=== PATIENT | female | born 1950 | race Caucasian/White ===

== ENCOUNTER 2021-05-06 11:48 | Inpatient (IN) ==
[2021-05-06] MEDS ORDERED: SODIUM CHLORIDE 0.9% 1,000 ML IV STA (12:20)
[2021-05-06] MEDS ORDERED: PANTOPRAZOLE 40 MG VIAL IV STA (12:22)
[2021-05-06 12:54] LABS: Basophils % 0.2 % (0.0-0.8); Hematocrit 19.4 VOL% (35.7-47.0); Immature Granulocytes % 1.2 %; Immature Granulocytes Absolute 0.22 #; Lymphocytes # 1.8 10*3/uL (1.4-4.0); Lymphocytes % 10.1 % (21.3-54.2); Mean Corpuscular HGB Conc 32.5 GM/DL (32-36); Mean Corpuscular Volume 102.1 FL (87-102); Monocytes % 7.8 % (1.7-12.7); NRBC # 0.17 10*3/uL; Neutrophils % 80.7 % (38.7-73.9); Platelet Count 166 T/CUMM (130-400); Red Cell Distribution Width 15.9 % (9.3-17.3); White Blood Count 17.9 T/CUMM (4-12)
[2021-05-06 12:58] LABS: Hemoglobin 6.3 GM/DL (12.0-16.0)
[2021-05-06 13:04] LABS: PT Patient Result 118.7 SECS (10.5-12.0)
[2021-05-06 13:11] LABS: Bilirubin,Total 0.4 MG/DL (0.20-1.00); Osmolality,Calculated 315.8 MOS/KG (273-304); Potassium 3.8 MMOL/L (3.5-5.1); Total Protein 5.5 G/DL (6.4-8.2)
[2021-05-06 13:13] LABS: INR 12.7
[2021-05-06] MEDS ORDERED: PHYTONADIONE INJ 10 MG in SODIUM CHLORIDE 0.9% 50 ML IV STA (13:38)
[2021-05-06] MEDS ORDERED: DEXTROSE 50% 25 GM/50 ML VIAL IV PRN (14:43)
[2021-05-06] MEDS ORDERED: PROMETHAZINE 25 MG TABLET PO PRN (14:43)
[2021-05-06] MEDS ORDERED: GLUCAGON 1 MG VIAL IM PRN (14:43)
[2021-05-06] MEDS ORDERED: SODIUM CHLORIDE 0.9% 1,000 ML IV PRN ×2 (14:48→17:17)
[2021-05-06] MEDS: SODIUM CHLORIDE 0.9% 1,000 ML IV SCH (17:46)
[2021-05-06] MEDS: ONDANSETRON 4 MG/2 ML VIAL IV PRN ×2 (18:22→22:49)
[2021-05-06] MEDS: MORPHINE 2 MG/1 ML SYRINGE IV PRN ×2 (18:24→22:47)
[2021-05-07] MEDS: SODIUM CHLORIDE 0.9% 1,000 ML IV SCH ×2 (03:35→13:42)
[2021-05-07 06:19] LABS: Basophils % 0.2 % (0.0-0.8); Eosinophils % 0.1 % (0.00-10.9); Hemoglobin 7.1 GM/DL (12.0-16.0); Immature Granulocytes % 1.7 %; Immature Granulocytes Absolute 0.19 #; Lymphocytes # 1.6 10*3/uL (1.4-4.0); Lymphocytes % 14.3 % (21.3-54.2); Mean Corpuscular HGB Conc 32.3 GM/DL (32-36); Mean Corpuscular Volume 95.2 FL (87-102); Mean Platelet Volume 12.4 FL (9.6-12.0); Monocytes % 10.4 % (1.7-12.7); NRBC # 0.13 10*3/uL; Neutrophils % 73.3 % (38.7-73.9); Platelet Count 107 T/CUMM (130-400); Red Blood Count 2.31 MC/CUMM (3.8-5.5); Red Cell Distribution Width 17.1 % (9.3-17.3)
[2021-05-07 06:22] LABS: INR 1.2
[2021-05-07 06:28] LABS: Alanine Aminotransferase < 9 U/L (13-56); Albumin 2.5 G/DL (3.4-5.0); Alkaline Phosphatase 27 U/L (45-117); Aspartate Amino Transferase 7 U/L (0-37); Blood Urea Nitrogen 98 MG/DL (7-18); Calcium 7.8 MG/DL (8.5-10.1); Carbon Dioxide 24 MMOL/L (21-32); Estimated Glom Filtration Rate 33 ML/MIN; Glucose 116 MG/DL (74-106); HDL Cholesterol 24 MG/DL (40-60); Osmolality,Calculated 312.3 MOS/KG (273-304); Potassium 3.5 MMOL/L (3.5-5.1); Risk Ratio 4.25; Sodium 141 MMOL/L (136-145); Total Protein 4.6 G/DL (6.4-8.2); Triglycerides 306 MG/DL (2-150); VLDL Cholesterol 61.2 MG/DL
[2021-05-07] MEDS: PANTOPRAZOLE 40 MG VIAL IV SCH (08:17)
[2021-05-07] MEDS: ONDANSETRON 4 MG/2 ML VIAL IV PRN ×3 (08:56→20:30)
[2021-05-07] MEDS ORDERED: SODIUM CHLORIDE 0.9% 1,000 ML IV PRN ×2 (09:29→10:01)
[2021-05-07] MEDS ORDERED: PROMETHAZINE 25 MG/1 ML VIAL IM PRN (11:27)
[2021-05-07] MEDS: MORPHINE 2 MG/1 ML SYRINGE IV PRN ×2 (15:06→20:30)
[2021-05-08] MEDS: SODIUM CHLORIDE 0.9% 1,000 ML IV SCH (03:46)
[2021-05-08 07:04] LABS: INR 1.1; PT Patient Result 12.1 SECS (10.5-12.0)
[2021-05-08 08:06] LABS: Basophils % 0.3 % (0.0-0.8); Eosinophils % 0.3 % (0.00-10.9); Hematocrit 24.6 VOL% (35.7-47.0); Hemoglobin 8.2 GM/DL (12.0-16.0); Immature Granulocytes Absolute 0.32 #; Lymphocytes # 1.2 10*3/uL (1.4-4.0); Lymphocytes % 15.3 % (21.3-54.2); Mean Corpuscular HGB Conc 33.3 GM/DL (32-36); Mean Corpuscular Volume 87.2 FL (87-102); Mean Platelet Volume 12.5 FL (9.6-12.0); Monocytes % 10.6 % (1.7-12.7); Neutrophils % 69.5 % (38.7-73.9); Platelet Count 94 T/CUMM (130-400); Red Blood Count 2.82 MC/CUMM (3.8-5.5); Red Cell Distribution Width 19.8 % (9.3-17.3); White Blood Count 7.9 T/CUMM (4-12)
[2021-05-08 08:19] LABS: Calcium 7.2 MG/DL (8.5-10.1); Osmolality,Calculated 303.4 MOS/KG (273-304); Potassium 3.5 MMOL/L (3.5-5.1)
[2021-05-08 08:28] LABS: Hypochromasia 1+; Microcytosis 1+
[2021-05-08 08:29] LABS: Platelet Estimate Decreased; Polychromasia Slight
[2021-05-08] MEDS: PANTOPRAZOLE 40 MG VIAL IV SCH (10:44)
[2021-05-08] MEDS ORDERED: ONDANSETRON 4 MG/2 ML VIAL ONE (12:51)
[2021-05-08] MEDS ORDERED: GLUCAGON 1 MG VIAL IM PRN (13:53)
[2021-05-08] MEDS ORDERED: DEXTROSE 50% 25 GM/50 ML VIAL IV PRN (13:53)
[2021-05-08] MEDS: ACETAMINOPHEN 325 MG TABLET PO PRN ×2 (14:13→22:51)
[2021-05-09] MEDS: SODIUM CHLORIDE 0.9% 1,000 ML IV SCH ×2 (05:28→05:29)
[2021-05-09 07:03] LABS: Basophils % 0.3 % (0.0-0.8); Eosinophils % 0.6 % (0.00-10.9); Hematocrit 24.1 VOL% (35.7-47.0); Hemoglobin 8.1 GM/DL (12.0-16.0); Immature Granulocytes % 2.2 %; Immature Granulocytes Absolute 0.14 #; Lymphocytes % 16.1 % (21.3-54.2); Mean Corpuscular HGB Conc 33.6 GM/DL (32-36); Mean Corpuscular Volume 89.3 FL (87-102); Mean Platelet Volume 12.9 FL (9.6-12.0); Monocytes % 11.6 % (1.7-12.7); NRBC # 0.07 10*3/uL; Neutrophils % 69.2 % (38.7-73.9); Platelet Count 90 T/CUMM (130-400); Red Cell Distribution Width 19.8 % (9.3-17.3); White Blood Count 6.4 T/CUMM (4-12)
[2021-05-09 07:17] LABS: Osmolality,Calculated 292.7 MOS/KG (273-304); Potassium 3.4 MMOL/L (3.5-5.1)
[2021-05-09 07:27] LABS: Hypochromasia 1+; Microcytosis 1+; Platelet Estimate Decreased
[2021-05-09 07:44] VITALS: BP 141/57
[2021-05-09] MEDS: PANTOPRAZOLE 40 MG VIAL IV SCH (09:32)
[2021-05-09] MEDS ORDERED: POTASSIUM CHLORIDE 20 MEQ TABLET PO ONE (10:01)
== END 2021-05-09 13:24 | disposition home or self-care (01) | DRG 813 ==
LOC: N.ED 11:48 → N.TELEN 15:16
PROVIDERS: ADMIT Internal Medicine; ATTEND Internal Medicine